=== PATIENT | female | born 1970 | race Caucasian/White ===

== ENCOUNTER 2020-03-04 05:53 | Day surgery (SDC) | payer MEDICARE ==
[2020-02-26 13:23] LABS: BASOPHILS # (AUTO) 0.1 X10'3 (0-0.2); EOSINOPHILS # (AUTO) 0.1 X10'3 (0-0.9); EOSINOPHILS % (AUTO) 1.7 % (0-6); LYMPHOCYTES # (AUTO) 1.7 X10'3 (1.1-4.8); LYMPHOCYTES % (AUTO) 27.3 % (21-51); MEAN CORPUSCULAR HEMOGLOBIN 29.4 PG (27.0-31.0); MEAN CORPUSCULAR HGB CONC 33.1 g/dL (33.0-36.5); MEAN PLATELET VOLUME 6.6 FL (7.4-10.4); MONOCYTES # (AUTO) 0.6 X10'3 (0-0.9); MONOCYTES % (AUTO) 9.1 % (2-12); NEUTROPHILS # (AUTO) 3.8 X10'3 (1.8-7.7); NEUTROPHILS % (AUTO) 60.9 % (42-75); PRE OP HEMATOCRIT 39.4 % (35.0-45.0); PRE OP PLATELET COUNT 371 X10'3 (140-440); RED BLOOD COUNT 4.43 X10'6 (4.20-5.60); RED CELL DISTRIBUTION WIDTH 13.6 % (11.5-14.5)
[2020-02-26 13:35] LABS: ALBUMIN/GLOBULIN RATIO 1.1 (1.1-1.5); ALKALINE PHOSPHATASE 88 IU/L (46-116); BLOOD UREA NITROGEN 11 MG/DL (7-18); BUN/CREATININE RATIO 15.5 (6.6-38.0); CALCIUM 9.2 MG/DL (8.5-10.1); CHLORIDE 104 MMOL/L (99-107); CREATININE 0.71 MG/DL (0.40-0.90); PRE OP ALT 21 U/L (30-65); PRE OP ANION GAP 9 (8-16); PRE OP AST 24 U/L (10-37); PRE OP BILIRUB, TOTAL 0.4 MG/DL (0.0-1.0); PRE OP GLUCOSE 97 MG/DL (70-104); PRE OP POTASSIUM 4.1 MMOL/L (3.4-5.1); PRE OP SODIUM 141 MMOL/L (135-145); TOTAL PROTEIN 7.6 G/DL (6.4-8.2); eGFR 87 ML/MIN
[~2020-03-04] VITALS: Ht 160 cm; Wt 107.0 kg
[~2020-03-04 05:53] MED LIST: OMEP40CA13 PO; clindamycin-Cleocin 900mg/D5W 50 ML IV ONE; famotidine 20mg tablet PO ONE; ringers solution, lacted 1,000 ML IV SCH
[2020-03-04] MEDS ORDERED: BUPIVAcaine/PF 2.5mg/ml (0.25%) 10ml vial ONE (06:48)
[2020-03-04] MEDS ORDERED: LIDOcaine 0.5% (5mg/ml) 50ml vial ONE (07:22)
[2020-03-04] MEDS ORDERED: fentaNYL/PF 50MCG/1 ML 2ML syringe ONE (07:29)
[2020-03-04] MEDS ORDERED: midazolam 2 mg/2 ml injection ONE (07:29)
[2020-03-04] MEDS ORDERED: proCHLORperazine 10 MG/2 ml inj IV PRN (07:35)
[2020-03-04] MEDS ORDERED: morphine 2 MG/ML inj. syringe IV PRN (07:35)
[2020-03-04] MEDS ORDERED: meperidine/PF 25mg/ml syringe IV PRN ×3 (07:35)
[2020-03-04] MEDS ORDERED: morphine 4 MG/ML inj SYRINge IV PRN (07:35)
[2020-03-04] MEDS ORDERED: ondansetron/PF 4mg/2ml inj IV PRN (07:35)
[2020-03-04] MEDS ORDERED: ringers solution, lacted 1,000 ML IV SCH (07:35)
[2020-03-04 08:11] VITALS: BP 150/94
--- NOTE | 2020-03-04 08:11 | NUR ---
Received from OR via [facility], accompanied by Anesthesiologist DR GARNER and report given by Anesthesiologist. PT AWAKE, DENIES PAIN, LEFT HAND W/BIAS TEJINDER URBINA CDI. Addendum: 03/04/20 at 0825 by Shayla Cid RN Amended: Links added.
[2020-03-04 08:21] VITALS: BP 146/85
[2020-03-04 08:31] VITALS: BP 132/92
[2020-03-04 08:41] VITALS: BP_SYST 140; BP_SYST 146; BP_DIAS 90; BP_DIAS 95
[2020-03-04 08:43] VITALS: BP 132/90
--- NOTE | 2020-03-04 09:01 | NUR ---
PT UP AND ABLE TO AMBULATE SAFELY, D/C INSTRUCTIONS GIVEN AND GONE OVER W/PT WHO VERBALIZED UNDERSTANDING, PT D'CD TO HOME VIA W/C TO PRIVATE VEHICLE W/O INCIDENT. Addendum: 03/04/20 at 0915 by Shayla Cid RN Amended: Links added.
== END 2020-03-04 09:01 | disposition home or self-care (01) ==
LOC: PAS 05:53
PROVIDERS: ATTEND Orthopaedic Surgery Hand Surgery
DX: G56.02 Carpal tunnel syndrome, left upper limb (principal); K21.9 Gastro-esophageal reflux disease without esophagitis; E66.9 Obesity, unspecified; Z68.41 Body mass index [BMI] 40.0-44.9, adult; Z20.828 Contact with and (suspected) exposure to other viral communicable diseases; Z79.899 Other long term (current) drug therapy; Z88.1 Allergy status to other antibiotic agents; Z88.8 Allergy status to other drugs, medicaments and biological substances; Z88.0 Allergy status to penicillin; Z98.890 Other specified postprocedural states; Z98.84 Bariatric surgery status; Z90.49 Acquired absence of other specified parts of digestive tract; Z86.73 Personal history of transient ischemic attack (TIA), and cerebral infarction without residual deficits
CPT/HCPCS: 36415; 64721; 80053; 82948; 85025; 87635; 93005; J2001; J2250; J3010; J3490; A4215; A6449; J7120

== ENCOUNTER 2020-04-12 05:39 | Day surgery (SDC) | payer MEDICARE ==
[2020-04-08 16:01] LABS: BASOPHILS # (AUTO) 0.1 X10'3 (0-0.2); BASOPHILS % (AUTO) 0.8 % (0-1); EOSINOPHILS # (AUTO) 0.1 X10'3 (0-0.9); LYMPHOCYTES # (AUTO) 1.8 X10'3 (1.1-4.8); LYMPHOCYTES % (AUTO) 26.6 % (21-51); MEAN CORPUSCULAR HEMOGLOBIN 29.7 PG (27.0-31.0); MEAN CORPUSCULAR HGB CONC 33.5 g/dL (33.0-36.5); MEAN CORPUSCULAR VOLUME 88.6 FL (78-98); MEAN PLATELET VOLUME 6.6 FL (7.4-10.4); MONOCYTES # (AUTO) 0.6 X10'3 (0-0.9); MONOCYTES % (AUTO) 9.3 % (2-12); NEUTROPHILS # (AUTO) 4.3 X10'3 (1.8-7.7); NEUTROPHILS % (AUTO) 62.3 % (42-75); PRE OP HEMATOCRIT 37.9 % (35.0-45.0); PRE OP HEMOGLOBIN 12.7 g/dL (12.0-16.0); PRE OP PLATELET COUNT 379 X10'3 (140-440); RED BLOOD COUNT 4.28 X10'6 (4.20-5.60); RED CELL DISTRIBUTION WIDTH 13.5 % (11.5-14.5)
[2020-04-08 16:12] LABS: ALBUMIN/GLOBULIN RATIO 1.2 (1.1-1.5); ALKALINE PHOSPHATASE 75 IU/L (46-116); BLOOD UREA NITROGEN 18 MG/DL (7-18); BUN/CREATININE RATIO 24.7 (6.6-38.0); CHLORIDE 103 MMOL/L (99-107); CREATININE 0.73 MG/DL (0.40-0.90); PRE OP ALT 21 U/L (30-65); PRE OP ANION GAP 5 (8-16); PRE OP AST 17 U/L (10-37); PRE OP BILIRUB, TOTAL 0.3 MG/DL (0.0-1.0); PRE OP GLUCOSE 106 MG/DL (70-104); PRE OP SODIUM 136 MMOL/L (135-145); TOTAL CARBON DIOXIDE 28.1 MMOL/L (24-32); TOTAL PROTEIN 7.4 G/DL (6.4-8.2); eGFR 85 ML/MIN
[~2020-04-12] VITALS: Ht 160 cm; Wt 105.4 kg
[~2020-04-12 05:39] MED LIST changes: +ceFAZolin 2gm in dextrose, iso 50 ML IV ONE; -clindamycin-Cleocin 900mg/D5W 50 ML IV ONE
[2020-04-12 06:15] VITALS: BP 123/73
[2020-04-12] MEDS ORDERED: BUPIVAcaine/PF 2.5mg/ml (0.25%) 10ml vial ONE (06:40)
[2020-04-12] MEDS ORDERED: LIDOcaine 1% 30ml preserv. free vial ONE (07:38)
[2020-04-12] MEDS ORDERED: fentaNYL/PF 50MCG/1 ML 2ML syringe ONE (08:27)
[2020-04-12] MEDS ORDERED: MIDAZolam 5mg/5ml vial ONE (08:28)
[2020-04-12] MEDS ORDERED: ringers solution, lacted 1,000 ML IV SCH ×2 (08:55)
[2020-04-12] MEDS ORDERED: proCHLORperazine 10 MG/2 ml inj IV PRN ×2 (08:55)
[2020-04-12] MEDS ORDERED: morphine 4 MG/ML inj SYRINge IV PRN ×2 (08:55)
[2020-04-12] MEDS ORDERED: ondansetron/PF 4mg/2ml inj IV PRN ×2 (08:55)
[2020-04-12] MEDS ORDERED: morphine 2 MG/ML inj. syringe IV PRN ×2 (08:55)
[2020-04-12] MEDS ORDERED: meperidine/PF 25mg/ml syringe IV PRN ×6 (08:55)
[2020-04-12 09:18] VITALS: BP 138/82
--- NOTE | 2020-04-12 09:18 | NUR ---
Received from OR via , accompanied by Anesthesiologist DR VICENTE and report given by Anesthesiolgist.AWAKENS TO VOICE. VITALS STABLE. DRESSING DI. GURVINDER PAIN. FINGERS COOL AND PINK.
[2020-04-12 09:28] VITALS: BP 129/75
[2020-04-12 09:38] VITALS: BP 123/77
[2020-04-12 09:48] VITALS: BP 136/89
--- NOTE | 2020-04-12 09:58 | NUR ---
AWAKE AND ORIENTED. VITALS STABLE. DRESSING DI. GURVINDER PAIN. HOME WITH HER SON AT THIS TIME.
[2020-04-12] MEDS ORDERED: ketorolac trometh. 30mg/ml inj. ONE (10:08)
== END 2020-04-12 09:58 | disposition home or self-care (01) ==
LOC: PAS 05:39
PROVIDERS: ATTEND Orthopaedic Surgery Hand Surgery
DX: G56.01 Carpal tunnel syndrome, right upper limb (principal); G47.30 Sleep apnea, unspecified; I69.354 Hemiplegia and hemiparesis following cerebral infarction affecting left non-dominant side; K21.9 Gastro-esophageal reflux disease without esophagitis; J45.909 Unspecified asthma, uncomplicated; E66.01 Morbid (severe) obesity due to excess calories; Z68.41 Body mass index [BMI] 40.0-44.9, adult; Z88.0 Allergy status to penicillin; Z88.8 Allergy status to other drugs, medicaments and biological substances; Z79.899 Other long term (current) drug therapy; Z88.1 Allergy status to other antibiotic agents; Z98.84 Bariatric surgery status; Z98.890 Other specified postprocedural states; Z90.710 Acquired absence of both cervix and uterus; Z90.49 Acquired absence of other specified parts of digestive tract; Z20.822 Contact with and (suspected) exposure to COVID-19
CPT/HCPCS: 36415; 64721; 76937; 80053; 85025; 87635; J1885; J2001; J2250; J3010; J3490; A4215; J7120